=== PATIENT | female | born 1990 | race Caucasian/White ===

== ENCOUNTER → 2018-11-11 | Outpatient (CLI) | payer BC ==
--- NOTE | 2018-11-11 11:02 | KCIC ---
MRI of the right ankle without contrast dated 11/11/2018. No comparison available. CLINICAL INDICATION: Right ankle pain for 6 weeks. TECHNIQUE: Routine multiplanar multisequence MR imaging performed. FINDINGS: Bone marrow signal is homogeneous. No marrow edema. Talar dome is intact. No significant ankle joint effusion. Distal Achilles tendon is intact. There is some mild patchy edema within the pre-Achilles fat, nonspecific. Mild increased signal of the plantar aponeurosis with partial-thickness tearing of the central sleeve attachment on the calcaneal tuberosity. Mild edema within the flexor digitorum brevis muscle. Flexor and extensor tendons are intact. Mild increased signal of the tibialis posterior distally. There is a type II os naviculare with marrow edema in the opposing articular surfaces. Mild increased signal of the peroneus longus and peroneus brevis tendons with small amount of fluid along the superior peroneal retinaculum. Mild patchy edema within the subcutaneous tissues at the ankle. Anterior talofibular ligament and posterior talofibular ligament are intact. Tibiofibular ligaments and calcaneal fibular ligament intact. Deltoid complex grossly intact. IMPRESSION: 1. Mild/moderate plantar fasciitis with partial thickness tearing of the central sleeve. 2. Mild tendinosis of the distal tibialis posterior with type II os navicularis and marrow edema in the opposing articular surfaces. 3. Mild tenosynovitis of the peroneus longus/peroneus brevis. Electronically signed by: Leon Kraft MD (11/11/2018 10:59 AM) [id number]
== END | disposition home or self-care (01) ==
LOC: KCIC MRI 09:20
PROVIDERS: ATTEND Registered Nurse
DX: S93.491A Sprain of other ligament of right ankle, initial encounter (principal); M72.2 Plantar fascial fibromatosis; M65.871 Other synovitis and tenosynovitis, right ankle and foot; R60.0 Localized edema; X58.XXXA Exposure to other specified factors, initial encounter; Y93.89 Activity, other specified; Y92.89 Other specified places as the place of occurrence of the external cause; Y99.8 Other external cause status
CPT/HCPCS: 73721

== ENCOUNTER → 2020-03-15 | Outpatient (CLI) | payer BC ==
--- NOTE | 2020-03-15 13:11 | KCIC ---
STUDY: MRI of the right knee without contrast INDICATION: Fall. Injury to the medial knee. Pain, swelling and numbness. COMPARISON: CT and radiographs of the right knee from 03/08/2020 TECHNIQUE: Multiplanar MR imaging of the right knee performed without the use of intravenous or intra-articular contrast. FINDINGS: Degraded study on account of patient body habitus and motion. Menisci: Intact. Cruciate ligaments: Intact. Collateral ligaments: Prominent hemorrhage/edema centered at the medial knee in the setting of MPFL disruption at both its patellar and femoral attachments. More inferiorly the medial retinaculum is poorly delineated. The more posterior aspect of the superficial MCL (tibial collateral ligament) is intact but there is tearing where the TCL fuses with the medial patellar retinaculum. The meniscofemoral portion of the deep medial collateral ligament Is torn where it blends with the deep medial capsular ligament/joint capsule. The meniscotibial component remains intact. No acute disruption of the lateral collateral ligaments. Tendons: No tear of the extensor mechanism. The aponeurotic expansion of the vastus medialis that should blend with the MPFL and medial aspect of the patella is disrupted. The small portion of the expansion attaching to the quadratus femoris appears to be partially torn, images 7 series 5 and image 27 series 10. It does not appear as if the sartorius is torn which is also associated with the deep crural fascia. Cartilage: Patellofemoral: Close evaluation is made difficult due to study degradation as above. Scattered partial thickness patellar chondrosis but no osteochondral fracture or displaced chondral fragment is identified in the setting of avulsion injury at the MPFL attachment. Possible chondrosis at the mid to lower trochlear groove but without a full-thickness defect. Lateral compartment: Chondrosis at the mid posterior lateral tibial plateau with fissuring and possible delamination, reference image 22 series 8. Medial compartment: Probable scattered superficial chondrosis. Bones: Medial patellar avulsion injury at the MPFL insertion with adjacent marrow edema. The fracture fragments were better seen on the comparison CT. Kissing contusion with mild impaction at the extra-articular lateral femoral condyle, image 14 series 6. Edema localized to the anterior lip of the medial tibial plateau most likely from contusion without a depressed fracture. Mild scattered subchondral edema relating to chondral loss. Increased TT-TG distance measuring 2 cm. Lateral patellar tilt/subluxation not unexpected given MPFL disruption. Miscellaneous: Small/moderate knee joint effusion. Bandlike soft tissue extends from the medial joint capsule across the patellofemoral articulation into the lateral suprapatellar recess, image 9 series 5. Multifocal soft tissue edema and hemorrhage again most notable at the anteromedial knee. No localized hematoma or other cause of mass effect on the major nerves at the posterior knee. The hemorrhage/edema at the anteromedial knee is at the expected location of saphenous nerve branches. IMPRESSION: 1. Lateral patellar dislocation/relocation with redemonstration of avulsion injury at the MPFL attachment to the patella. The injury is severe with the MPFL fully disrupted both at its patellar and femoral attachment and there is injury/disruption of the medial retinacular complex more inferiorly as well. Tearing extends to involve the anterior aspect of the TCL and deep meniscofemoral ligament where they fuse with the medial retinaculum. There is also disruption of the vastus medialis aponeurotic expansion that blends with the MPFL and where it attaches to the patella. The portion of the expansion that blends with the quadratus femoris appears partially torn. Extensive surrounding edema/hemorrhage. 2. Band-like density originating from the medial joint capsule traverses the patellofemoral compartment into the lateral suprapatellar recess. It would be unusual for a thickened medial patellar plica to extend this far lateral. If surgery is performed recommend attention to this finding to exclude intraarticular displacement of torn ligament. 3. Marrow contusion with mild impaction at the extra-articular lateral femoral condyle. Mild marrow contusion at the anterior lip of the medial tibial plateau. 4. Increased TT-TG distance measuring 2 cm. 5. Though evaluation is made difficult by patient body habitus and motion, mostly partial-thickness chondrosis scattered throughout the knee with small areas of subchondral marrow edema. No displaced chondral fragment is identified. 6. Intact menisci, cruciate ligaments and lateral collateral ligaments. 7. In the setting of reported numbness, nerves most likely to be affected by the patient's trauma would be branches of the saphenous nerve at the anteromedial knee. The major nerves at the posterior knee are unremarkable. Electronically signed by: BOAZ PRAJAPATI MD (03/15/2020 1:07 PM) [id number]
== END | disposition home or self-care (01) ==
LOC: KCIC MRI 10:54
PROVIDERS: ATTEND Orthopaedic Surgery Sports Medicine
DX: S83.004A Unspecified dislocation of right patella, initial encounter (principal); M25.461 Effusion, right knee; X58.XXXA Exposure to other specified factors, initial encounter; Y93.89 Activity, other specified; Y92.89 Other specified places as the place of occurrence of the external cause; Y99.8 Other external cause status
CPT/HCPCS: 73721

== ENCOUNTER → 2020-08-26 | Outpatient (CLI) | payer BC ==
--- NOTE | 2020-08-26 23:41 | KCIC ---
STUDY: MRI of the lumbar spine without contrast INDICATION: Intervertebral disc degeneration. Left leg pain and numbness. COMPARISON: 04/08/2015 TECHNIQUE: Multiplanar MR imaging of the lumbar spine performed without the use of intravenous contra st. FINDINGS: Normal signal and configuration of the conus medullaris which terminates at the mid aspect of L1. Unr emarkable cauda equina nerve roots. Discogenic arthrosis greatest at L5-S1 with progressive disc space narrowing from the 2014 comparison . Mild active endplate edema mainly eccentric to the left. Disc desiccation without significant heigh t loss at L3-L4 and L4-L5. No relevant change in lumbar alignment or vertebral body height. T11-T12 through L2-L3: Only evaluated on the sagittal sequences. No significant spondylosis. Patent c entral canal and neural foramina. L3-L4: Mild left eccentric disc bulge is similar in size to the comparison. No significant facet arth rosis. Patent central canal and neural foramina. L4-L5: Mild left eccentric disc bulge slightly larger at the left foraminal aspect. Superimposed smal l central caudal extrusion is also not significantly different. Minimal early facet arthrosis on the left. Patent central canal, lateral recesses and right neural foramen. Minimal neural foraminal narro wing on the left with disc material contacting the anterior margin of the exiting L4 nerve root. L5-S1: Mild increase in size of a posterior disc bulge with a superimposed small central protrusion. Mildly progressed left more so than right endplate osteophytic ridging. No significant facet arthrosi s. The central canal is patent as are the lateral recesses. Moderate left and mild right neural larry inal stenosis. IMPRESSION: 1. Progressive disc space height loss at L5-S1 relative to the 2014 comparison. Associated mild acti ve endplate edema mainly eccentric to the left. At this level, mild increase in size of a posterior d isc bulge with a superimposed small central protrusion in addition to left more so than right endplat e osteophytic ridging. There is now moderate left and mild right neural foraminal stenosis. Patent ce ntral canal. 2. Left eccentric disc bulge at L4-L5 with faint increase in size of the left foraminal aspect but w ith only minimal left neural foraminal narrowing. Electronically signed by: BOAZ PRAJAPATI MD (08/26/2020 11:39 PM) [facility] [place]
== END ==
LOC: KCIC MRI 12:31
PROVIDERS: ATTEND Registered Nurse
DX: M51.36 Other intervertebral disc degeneration, lumbar region (principal); M47.816 Spondylosis without myelopathy or radiculopathy, lumbar region; M48.061 Spinal stenosis, lumbar region without neurogenic claudication; M25.78 Osteophyte, vertebrae
CPT/HCPCS: 72148